=== PATIENT | female | born 1995 | race Caucasian/White ===

== ENCOUNTER 2018-02-24 08:09 | Outpatient (CLI) | END 2018-02-24 09:42 | disposition home or self-care (01) ==

== ENCOUNTER 2018-02-27 00:20 | Inpatient (IN) | END 2018-03-03 16:08 | disposition home or self-care (01) | DRG 775 ==

== ENCOUNTER 2018-03-06 17:01 | Inpatient (IN) | END 2018-03-09 13:25 | disposition home or self-care (01) | DRG 781 ==